=== PATIENT | female | born 1985 | race Caucasian/White ===

== ENCOUNTER 2019-07-01 18:41 | Emergency (ER) | payer OTHER ==
[~2019-07-01] VITALS: Ht 170.2 cm; Wt 107.9 kg
[2019-07-01] MEDS ORDERED: EMTRICITABINE 200MG CAPSULE PO ONE (20:30)
[2019-07-01] MEDS ORDERED: RALTEGRAVIR 400MG TABLET PO SCH (20:30)
[2019-07-01] MEDS ORDERED: TENOFOVIR 300MG TABLET PO ONE (20:30)
[2019-07-01 21:35] LABS: HEPATITIS B SURFACE ANTIGEN NEGATIVE
[2019-07-01 21:50] VITALS: BP 141/87
== END 2019-07-01 22:37 | disposition home or self-care (01) ==
LOC: ER 18:41
DX: S61.235A Puncture wound without foreign body of left ring finger without damage to nail, initial encounter (principal); W26.8XXA Contact with other sharp object(s), not elsewhere classified, initial encounter; Y93.89 Activity, other specified; Y92.018 Other place in single-family (private) house as the place of occurrence of the external cause
CPT/HCPCS: 36415; 99283